=== PATIENT | female | born 1985 | race American Indian/Alaskan Native ===

== ENCOUNTER 2018-02-16 10:51 | Outpatient (CLI) | payer SELFPAY ==
[2018-02-16 14:58] LABS: Creatinine,Urine 241.9 mg/dL (0.1-20.0)
[2018-02-16 18:32] LABS: Creatinine 24 Hour,Urine 1.5 (0.8-2.8)
== END 2018-02-16 11:41 | disposition home or self-care (01) ==
LOC: TRG 10:51
PROVIDERS: ATTEND Obstetrics & Gynecology
DX: O47.03 False labor before 37 completed weeks of gestation, third trimester (principal); Z3A.32 32 weeks gestation of pregnancy
CPT/HCPCS: 82570; 84156

== ENCOUNTER 2018-02-21 16:49 | Outpatient (CLI) | payer OTHER ==
[2018-02-21] MEDS ORDERED: LACTATED RINGERS 500 ML IV ONE (17:54)
[2018-02-21 18:00] LABS: Hematocrit 32.7 % (30.3-42.9); Hemoglobin 10.8 gm/dl (10.1-14.3); Mean Corpuscular HGB Conc 33 % (30-34); Mean Corpuscular Hemoglobin 30 pg (28-32); Mean Corpuscular Volume 92 fl (79-97); Platelet Count 227 K/mm3 (140-440); Red Blood Count 3.56 M/mm3 (3.65-5.03); Red Cell Distribution Width 13.3 % (13.2-15.2)
[2018-02-21] MEDS ORDERED: TYLENOL PO ONE (18:06)
[2018-02-21] MEDS ORDERED: PHENERGAN PO ONE (18:07)
[2018-02-21 18:35] LABS: Alanine Aminotransferase 10 units/L (7-56); Uric Acid 2.9 mg/dL (3.5-7.6)
[2018-02-21 18:48] LABS: Bilirubin,Urine NEG (Negative); Blood,Urine NEG (Negative); Mucus,Urine 3+ /HPF
[2018-02-21 18:49] LABS: Color,Urine Yellow (Yellow)
[2018-02-21 18:57] VITALS: BP 132/81
== END 2018-02-21 19:35 | disposition home or self-care (01) ==
LOC: TRG 16:49
PROVIDERS: ATTEND Obstetrics & Gynecology
DX: O47.03 False labor before 37 completed weeks of gestation, third trimester (principal); Z3A.32 32 weeks gestation of pregnancy
CPT/HCPCS: 36415; 81001; 82565; 83615; 84450; 84460; 84550; 85027; Q0169

== ENCOUNTER 2019-01-13 08:50 | Outpatient (CLI) | payer OTHER ==
--- NOTE | 2019-01-13 11:11 | Ultrasound Report ---
BILATERAL DIGITAL DIAGNOSTIC MAMMOGRAM WITH CAD -- 01/13/2019 BILATERAL COMPLETE BREAST ULTRASOUND INDICATION: Bilateral nipple discharge. The discharge was initially bloody but is now milky. TECHNIQUE: Digital bilateral mammographic imaging was performed. Complete ultrasound of all four (4) quadrants was performed. This examination was interpreted with the benefit of Computer-Aided Detecti on (CAD) analysis. COMPARISON: None. FINDINGS: Breast Density: The breasts are heterogeneously dense, which may obscure small masses. MAMMOGRAPHIC FINDINGS: There is no evidence of dominant mass, suspicious calcifications or architectu ral distortion in either breast. ULTRASOUND FINDINGS: Complete sonographic evaluation of all 4 quadrants and retroareolar region was p erformed. Mild right retroareolar duct ectasia and no mass, cyst or shadowing of the right breast. No mass, cyst or shadowing of the left breast. IMPRESSION: No mammographic evidence of malignancy. Mild right benign duct ectasia. No suspicious fin ding by ultrasound. Follow up recommendation: Unless otherwise clinically indicated, recommend patient return to routine screening mammography at age 40. BI-RADS Category 2: Benign. A "normal" or negative report should not discourage follow up or biopsy of a clinically significant f inding. A written summary of these findings will be mailed to the patient. The patient will be entered into a mammography reporting system which will generate a reminder letter for the patient's next appointmen t at the appropriate interval. According to the [employer], yearly mammograms are recommended starting at age 40 and continuing as long as a woman is in good health. Breast MRI is recommended for women with an sabine roximately 20-25% or greater lifetime risk of breast cancer, including women with a strong family his tory of breast or ovarian cancer and women who have been treated for Hodgkin's disease. Signer Name: Norberto Mcnamara MD Signed: 01/13/2019 11:06 AM Workstation Name: [id number]
== END 2019-01-13 08:51 | disposition home or self-care (01) ==
LOC: MAMMO 08:50
PROVIDERS: ATTEND Surgery
DX: N60.41 Mammary duct ectasia of right breast (principal)
CPT/HCPCS: 77066